=== PATIENT | male | born 1990 | race Hispanic/Latino ===

== ENCOUNTER 2023-09-26 12:53 | Emergency (ER) | payer BC ==
[2023-09-26 13:35] LABS: #Basophils 0.05 10x3/uL (0.0-0.2); %Basophils 0.7 % (0.0-1.0); %Eosinophils 8.5 % (0.0-10.0); %Lymphocytes 45.1 % (21.0-51.0); %Monocytes 8.5 % (0.0-10.0); %Neutrophils 36.9 % (42.0-75.0); Hematocrit 41.4 % (42.0-52.0); Hemoglobin 14.2 g/dL (14.0-18.0); Mean Corpuscular HGB CONC 34.3 g/dL (32.0-36.0); Mean Corpuscular Hemoglobin 31.9 pg (27.0-31.0); Mean Platelet Volume 9.7 fL (7.4-10.4); Platelet Count 298 10x3/uL (130-400); RBC Distribution Width 11.9 % (11.5-14.5); Red Blood Cell (RBC) Count 4.45 mill/uL (4.70-6.10)
[2023-09-26 13:58] LABS: Troponin I Less than 0.010 ng/mL (< 0.028)
[2023-09-26 14:03] LABS: ALT (SGPT) 24 U/L (8-55); AST (SGOT) 23 U/L (5-34); Albumin 4.1 g/dL (3.5-5.0); Alkaline Phosphatase 56 U/L (40-110); Anion Gap 13 mmol/L (10-20); BUN (Urea Nitrogen) 15 mg/dL (8.9-20.6); Bilirubin, Total 0.9 mg/dL (0.2-1.2); Calc. Creatinine Clearance 0 mL/min (70-130); Calcium 9.7 mg/dL (7.8-10.44); Carbon Dioxide 24 mmol/L (22-29); Chloride 104 mmol/L (98-107); Estimated GFR 78; Globulin 3.6 g/dL (2.4-3.5); Glucose 101 mg/dL (70-105); Protein, Total 7.7 g/dL (6.0-8.3); Sodium 137 mmol/L (136-145)
== END 2023-09-26 15:39 | disposition home or self-care (01) ==
LOC: ERS 12:53
DX: R07.9 Chest pain, unspecified (principal); I10 Essential (primary) hypertension
CPT/HCPCS: 36415; 71046; 80053; 83880; 84484; 85025; 93005

== ENCOUNTER 2023-10-06 12:06 | Emergency (ER) | payer BC ==
[2023-10-06] MEDS ORDERED: Iopamidol-370 76% 500 ML MDV (1 ML CHARGE) ONE (15:53)
[2023-10-06] MEDS ORDERED: Lidocaine/Transparent Dressing 1 EACH KIT ONE (16:04)
[2023-10-06 16:26] LABS: #Basophils 0.06 10x3/uL (0.0-0.2); %Basophils 0.5 % (0.0-1.0); %Eosinophils 3.7 % (0.0-10.0); %Lymphocytes 28.6 % (21.0-51.0); %Monocytes 8.7 % (0.0-10.0); %Neutrophils 58.1 % (42.0-75.0); Hematocrit 41.1 % (42.0-52.0); Hemoglobin 14.4 g/dL (14.0-18.0); Mean Corpuscular Hemoglobin 32.6 pg (27.0-31.0); Mean Platelet Volume 9.5 fL (7.4-10.4); Platelet Count 339 10x3/uL (130-400); RBC Distribution Width 11.8 % (11.5-14.5); Red Blood Cell (RBC) Count 4.42 mill/uL (4.70-6.10)
[2023-10-06 16:40] LABS: Anion Gap 12 mmol/L (10-20); BUN (Urea Nitrogen) 11 mg/dL (8.9-20.6); Calc. Creatinine Clearance 0 mL/min (70-130); Carbon Dioxide 28 mmol/L (22-29); Chloride 102 mmol/L (98-107); Potassium 4.3 mmol/L (3.5-5.1); Sodium 138 mmol/L (136-145)
[2023-10-06 16:41] LABS: ALT (SGPT) 27 U/L (8-55); AST (SGOT) 22 U/L (5-34); Albumin 4.1 g/dL (3.5-5.0); Alkaline Phosphatase 79 U/L (40-110); Bilirubin, Total 0.9 mg/dL (0.2-1.2); Calcium 10.1 mg/dL (7.8-10.44); Estimated GFR 95; Glucose 94 mg/dL (70-105); Protein, Total 8.1 g/dL (6.0-8.3)
[2023-10-06] MEDS ORDERED: Clindamycin 150 MG CAP ONE (17:10)
[2023-10-06] MEDS ORDERED: HYDROcodone/Acetaminophen 7.5/325 mg Tablet ONE (17:10)
== END 2023-10-06 17:36 | disposition home or self-care (01) ==
LOC: ERS 12:06
DX: K61.0 Anal abscess (principal); I10 Essential (primary) hypertension
CPT/HCPCS: 72193; 80053; 85025; Q9967

== ENCOUNTER 2023-10-07 15:18 | Emergency (ER) | payer BC | END 2023-10-07 16:40 | disposition home or self-care (01) | LOC: ERS 15:18 | DX: T36.8X1A Poisoning by other systemic antibiotics, accidental (unintentional), initial encounter (principal); I10 Essential (primary) hypertension | CPT/HCPCS: 99284 ==

== ENCOUNTER 2023-10-30 19:58 | Emergency (ER) | payer BC | END 2023-10-30 23:12 | disposition home or self-care (01) | LOC: ERS 19:58 | DX: L02.31 Cutaneous abscess of buttock (principal); I10 Essential (primary) hypertension; Z75.8 Other problems related to medical facilities and other health care; Z79.899 Other long term (current) drug therapy | CPT/HCPCS: 99282 ==

== ENCOUNTER 2024-12-23 11:32 | Emergency (ER) | payer OTHER | END 2024-12-23 14:40 | LOC: ERS 11:32 | DX: G51.0 Bell's palsy (principal); I10 Essential (primary) hypertension | CPT/HCPCS: 99282 ==

== ENCOUNTER 2025-04-01 17:57 | Emergency (ER) | payer OTHER ==
[2025-04-01 19:25] LABS: #Basophils 0.06 10x3/uL (0.0-0.2); #Eosinophils 0.31 10x3/uL (0.0-0.7); #Monocytes 0.48 10x3/uL (0.11-0.59); #Neutrophils 3.45 10x3/uL (1.40-6.50); %Basophils 0.8 % (0.0-1.0); %Eosinophils 3.9 % (0.0-10.0); %Lymphocytes 45.4 % (21.0-51.0); %Monocytes 6.1 % (0.0-10.0); %Neutrophils 43.4 % (42.0-75.0); Hematocrit 41.9 % (42.0-52.0); Hemoglobin 14.6 g/dL (14.0-18.0); Mean Corpuscular Hemoglobin 31.5 pg (27.0-31.0); Mean Corpuscular Volume 90.5 fL (78.0-98.0); Platelet Count 306 10x3/uL (130-400); Red Blood Cell (RBC) Count 4.63 mill/uL (4.70-6.10); White Blood Cell (WBC) Count 7.93 10x3/uL (4.8-10.8)
[2025-04-01 19:27] LABS: Bacteria/HPF None Seen HPF (None Seen); CAUTI Indications for Culture Dysuria,urgency,freq; Glucose, Urine (Dipstick) Greater than 1000 mg/dL (Negative); Leukocyte Negative Leu/uL (Negative); Protein, Urine (Dipstick) Negative (Neg-Trace); RBC/HPF None Seen HPF (0-3); Specific Gravity, Urine 1.026 (1.002-1.036); WBC/HPF None Seen HPF (0-3)
[2025-04-01 19:29] LABS: Urine Culture Reflex No No
[2025-04-01 19:47] LABS: Actual Bicarbonate (HCO3v) 26.8 mEq/L (22-28); Base Excess -0.6 mEq/L (-2.0 to +3.0); Calcium, Ionized (venous) 1.23 mmol/L (1.16-1.32); Chloride (VBG) 99 mmol/L (98-106); Hematocrit-VBG 46 % (42.0-52.0); Hemoglobin (Hb) 15.5 g/dL (13.2-17.3); Potassium (VBG) 4.42 mmol/L (3.70-5.30); Sodium 137 mmol/L (133-146)
[2025-04-01 20:18] LABS: ALT (SGPT) 18 U/L (Less than 45); AST (SGOT) 32 U/L (11-34); Albumin 4.6 g/dL (3.1-4.5); Alkaline Phosphatase 90 U/L (40-110); Anion Gap 16 mmol/L (10-20); BUN (Urea Nitrogen) 14 mg/dL (8.9-20.6); Bilirubin, Total 0.4 mg/dL (0.3-1.2); Calc. Creatinine Clearance 0 mL/min (70-130); Calcium 9.9 mg/dL (7.8-10.44); Carbon Dioxide 23 mmol/L (22-29); Chloride 102 mmol/L (98-107); Globulin 4.0 g/dL (2.4-3.5); Glucose 376 mg/dL (70-105); Magnesium 2.4 mg/dL (1.6-2.6); Potassium 4.7 mmol/L (3.5-5.1); Sodium 136 mmol/L (136-145)
== END 2025-04-01 21:43 | disposition home or self-care (01) ==
LOC: ERS 17:57
DX: R73.9 Hyperglycemia, unspecified (principal); I10 Essential (primary) hypertension
CPT/HCPCS: 36415; 36416; 80053; 81001; 82010; 82805; 83735; 84100; 85025; 99284